=== PATIENT | male | born 1950 | race Caucasian/White ===

== ENCOUNTER 2019-08-29 05:28 | Observation (INO) ==
--- NOTE | 2019-08-29 05:55 | ERNOTE ---
Dyspnea - General Presenting Symptoms: shortness of breath Time Seen by Provider: 08/29/19 05:40 Source: patient Exam Limitations: no limitations - Immun/Allergies/Home Medications Immunizations: IMMUNIZATION HX Immunizations Up to Date Yes History of Influenza Vaccine No Hx Pneumococcal Vaccination No Allergies/Adverse Reactions: Allergies penicillin G Allergy (Mild, Verified 08/29/19 07:30) hives Home Medications: HOME MEDICATIONS NK 08/29/19 [Last Taken Unknown] - History of Present Illness Narrative: Patient states he awoke about 4 hours [employer] with chest heaviness. He denies shortness of breath but his says initially he said he was somewhat short of breath. He denies other symptoms Severity: moderate Initiating event: Reports: none Frequency of episodes: Reports: no prior episodes Modifying Factors - (Improves): Reports: rest Modifying Factors (Worsens): Reports: activity Associated Symptoms-Dyspnea: Reports: denies symptoms Review of Systems - Review of Systems Constitutional: Absent: recent illness, fever, chills EYE: Absent: vision changes ENT: Absent: nose congestion, nasal drainage Respiratory: Present: See HPI. Absent: cough Cardiology: Present: See HPI. Absent: palpitations Gastrointestinal/Abdominal: Absent: nausea, vomiting, abdominal pain Genitourinary: Absent: frequency, dysuria Musculoskeletal: Absent: back pain, muscle pain Skin: Absent: rash Neurological: Absent: headache, dizziness/light-headedness Endocrine: Absent: excessive sweating Hematologic/Lymphatic: Absent: easy bruising, easy bleeding Medical History (Last Reviewed 08/29/19 @ 05:50 by Koby Guajardo DO) Acute pain of right shoulder (Acute) Traumatic ecchymosis of right upper arm (Acute) Bruising in band like manner around upper forearm raises concern of intentional trauma such as being pulled upon aggressively. This would also explain associated right shoulder pain. However patient denies any trauma and does not recall an inciting event. at bedside and also does not recall how this could have occurred. No other symptoms or behavior that warrant further investigation. Conclusion discussed with patient, was bruising is most likely attributed to Coumadin treatment, however its presentation is very unusual. Multiple sclerosis (Chronic) Onset Date: Unknown DVT (deep venous thrombosis) (Resolved) Surgical History: Surgical History (Last Reviewed 08/29/19 @ 05:50 by Koby Guajardo DO) H/O hernia repair Onset Date: Unknown H/O transurethral resection of prostate Onset Date: Unknown History of foot surgery Onset Date: Unknown left Family History: Family History (Last Reviewed 08/29/19 @ 05:50 by Koby Guajardo DO) Father Hypertension Mother Hypertension Social History: (Last Reviewed 08/29/19 @ 05:50 by Koby Guajardo DO) Social History: adopted: No care home: No Marital status: lives independently: No household members: spouse number of children: 4 caregiver/support person: No current occupational status: retired Highest education level completed: high school graduate Service: No Tobacco: Smoking Status: Never smoker Alcohol: alcohol intake: current Alcohol type: beer alcohol intake frequency: a few times a month Substance Use: substance use type: does not use Dietary Habits: caffeine: Yes Physical Exam - Physical Exam General Appearance: Present: wd/wn, alert, no apparent distress Head Exam: Present: normal inspection, no evidence of injury Eye Exam: Normal inspection: bilateral, PERRL: bilateral, EOMI: bilateral Ears, Nose, Throat: Present: normal ENT inspection Neck: Present: normal inspection, nontender, supple Respiratory: Present: no respiratory distress, normal breath sounds, no accessory muscle use, chest nontender, lungs clear Cardiovascular/Chest: Present: regular rate, rhythm, no murmur Gastrointestinal/Abdominal: Present: normal bowel sounds, nontender, nondistended, soft Back Exam: Present: normal inspection, normal range of motion Extremity Exam: Present: normal inspection, normal range of motion, no edema Neurological Exam: Present: alert, oriented, normal mood/affect, no motor/sensory deficits Skin Exam: Present: normal color, warm/dry Lymphatic Exam: Present: no adenopathy Progress - Results and Orders Patient's Lab Results:: I have reviewed the patient's lab results. Results and Orders: Laboratory Tests 08/29/19 08/29/19 06:04 06:04 WBC 6.6 Hgb 14.5 Hct 43.9 Plt Count 304 Sodium 139 Potassium 4.1 Chloride 105 Carbon Dioxide 23.7 L BUN 15 Creatinine 0.93 BUN/Creatinine Ratio 16.1 Random Glucose 105 Calcium 9.3 Total Bilirubin 0.5 AST 19 ALT 27 Alkaline Phosphatase 62 Troponin I Less than 0.017 - Vital Signs Patient's Vital Signs:: I have reviewed the patient's vital signs. Vital Signs: Vital Signs 08/29/19 05:33 Temperature 36.7 C Pulse Rate 66 Respiratory Rate 16 Blood Pressure 143/97 H O2 Sat by Pulse Oximetry 97 - EKG EKG #1 EKG: atrial fibrillation, nonspecific ST T wave changes EKG read: Interp. by me - X-Ray X-Ray #1 X-Ray: chest Interpretation: Interp. by me X-ray Comments: No acute cardiopulmonary disease. - Progress/Reassessment Chief Complaint: Dyspnea Progress:: Improved Progress Note-Subjective: Pt's [id number] score is 3 due to age and previous thromboembolism. 08/29/19 07:[address] Hoffman she agrees to admission Departure Clinical Impression: Atrial fibrillation Qualifiers: Atrial fibrillation type: unspecified Qualified Code(s): I48.91 - Unspecified atrial fibrillation - Departure Disposition: Still a patient Condition: Stable
[2019-08-29 06:05] LABS: Hematocrit 43.9 % (42.0-52.0); Hemoglobin 14.5 gm/dL (13.5-18.0); Mean Cell Volume 90.1 fl (78-100); Mean Corpuscular Hemoglobin 29.8 pg (27-31); Neutrophil # 3.4 K/mm3 (1.3-6.0); Neutrophil % 51.4 % (42-75.0); Platelet Count 304 K/mm3 (150-450); Red Blood Count 4.87 M/mm3 (4.7-6.0); White Blood Count 6.6 K/mm3 (4.0-10.5)
[2019-08-29 06:26] LABS: ALT 27 U/L (19-67); AST 19 U/L (0-48); Albumin * 3.8 gm/dl (3.4-5.0); Alkaline Phosphatase * 62 U/L (50-170); Anion Gap 14.4 mmol/L (6.8-13.8); BUN/Creatinine Ratio 16.1 (9.0-21.6); Bilirubin, Total 0.5 mg/dL (0.0-1.1); Blood Urea Nitrogen 15 mg/dL (6-23); Ca. Corrected For Albumin 9.1 mg/dL (8.4-10.2); Calcium * 9.3 mg/dL (7.9-10.9); Carbon Dioxide 23.7 mmol/L (24-32.6); Chloride 105 mmol/L (97-106); Glucose * 105 mg/dL (70-110); Potassium 4.1 mmol/L (3.4-4.6); Sodium 139 mmol/L (132-142); Total Protein 7.5 gm/dL (6.2-8.2)
[2019-08-29 06:31] LABS: Troponin I Less than 0.017 ng/mL (0.00-0.10)
[2019-08-29] MEDS ORDERED: ACETAMINOPHEN 325 MG TABLET PO PRN (08:37)
[2019-08-29] MEDS ORDERED: ENOXAPARIN SODIUM 40 MG/0.4 ML SYRG SC SCH (08:45)
[2019-08-29] MEDS ORDERED: LACTOBACILLUS ACIDOPHILUS 1 EACH CAPSULE PO SCH (09:00)
[2019-08-29] MEDS ORDERED: ENOXAPARIN SODIUM 100 MG, ENOXAPARIN SODIUM 30 MG SC SCH ×2 (09:00)
--- NOTE | 2019-08-29 09:10 | HP ---
Chief Complaint - Chief Complaint Date of Service: 08/29/19 Time of Service: 08:59 Chief Complaint: I had sudden shortness of breath and chest pressure this morning History of Present Illness: 68-year-old male with past medical history of multiple sclerosis, morbid obesity, DVT was evaluated ER for sudden onset of shortness of breath that woke the patient up from the sleep and reported pressure in his chest. Patient reports that he went to bed without any issues and suddenly early this morning he woke up gasping for breath. He also explains something similar to an anxiety attack where he felt very tense and uneasy about something. Upon questioning patient and his report an increased level of stress recently due to legal trouble of their grandson which they raised, with grandson was arrested for DUI during the holiday season therefore his future is uncertain. Patient admits that it is likely an anxiety attack that caused her symptoms because as soon as he started driving to the hospital all symptoms resolved. Upon arriving at the hospital the patient was found to be asymptomatic however an EKG demonstrated new onset atrial fibrillation but with an adequate rate. Patient denies any old MIs or heart issues nor respiratory illnesses. Medical History (Last Reviewed 08/29/19 @ 08:33 by Elder Grant RN) Acute pain of right shoulder (Acute) Traumatic ecchymosis of right upper arm (Acute) Bruising in band like manner around upper forearm raises concern of intentional trauma such as being pulled upon aggressively. This would also explain associated right shoulder pain. However patient denies any trauma and does not recall an inciting event. at bedside and also does not recall how this could have occurred. No other symptoms or behavior that warrant further investigation. Conclusion discussed with patient, was bruising is most likely attributed to Coumadin treatment, however its presentation is very unusual. Multiple sclerosis (Chronic) Onset Date: Unknown DVT (deep venous thrombosis) (Resolved) Surgical History: Surgical History (Last Reviewed 08/29/19 @ 08:33 by Elder Grant RN) H/O hernia repair Onset Date: Unknown H/O transurethral resection of prostate Onset Date: Unknown History of foot surgery Onset Date: Unknown left Family History: Family History (Last Reviewed 08/29/19 @ 08:33 by Elder Grant RN) Father Hypertension Mother Hypertension Social History: (Last Reviewed 08/29/19 @ 08:34 by Elder Grant RN) Social History: adopted: No care home: No Marital status: lives independently: No household members: spouse number of children: 4 caregiver/support person: No current occupational status: retired Highest education level completed: high school graduate Service: No Tobacco: Smoking Status: Never smoker Alcohol: alcohol intake: current Alcohol type: beer alcohol intake frequency: a few times a month Substance Use: substance use type: does not use Dietary Habits: caffeine: Yes Peds Patient Hx - Developmental: No Pertinent Hx Peds Patient Hx - Medical: No Pertinent Hx Peds Patient Hx - Cardiac/Respiratory: No Pertinent Hx Peds Patient Hx - Surgical: No Surgical History Patient History - Cancer: No Hx of Cancer Review Of Systems (GEN) - Review of Systems Generalized/Overall Review: Present: No Symptoms Reported EENTM: Present: No Symptoms Reported Respiratory: Present: Shortness of Breath Cardiac: Present: Other - Chest pressure no pain Abdominal: Present: No Symptoms Reported Genitourinary: Present: No Symptoms Reported Musculoskeletal: Present: No Symptoms Reported Neurological: Present: No Symptoms Reported Skin: Present: No Symptoms Reported Endocrine: Present: No Symptoms Reported Immunizations: IMMUNIZATION HX Immunizations Up to Date Yes History of Influenza Vaccine No Hx Pneumococcal Vaccination No Allergies/Adverse Reactions: Allergies Allergy/AdvReac Type Severity Reaction Status Date / Time Penicillins Allergy Intermediate Hives Verified 08/29/19 08:32 Home Medications: HOME MEDICATIONS Lactobacillus Combination No.4 [Probiotic] 1 ea PO DAILY 08/29/19 [Last Taken Unknown] Exam - Exam Vital Signs: Vital Signs - Last Taken Temp 36.2 C 08/29/19 08:13 Pulse 74 08/29/19 08:43 Resp 16 08/29/19 08:13 BP 143/79 08/29/19 08:13 Pulse Ox 94 08/29/19 08:13 Constitutional: Present: Alert, Oriented x3, Cooperative, Well developed, No distress, Elderly, Morbidly obese ENT Exam: Present: normal ENT inspection, hearing grossly normal, pharynx normal, TMs normal Eye Exam: bilateral eye: normal inspection, PERRL, EOMI Neck: Present: non-tender, full range of motion, supple, normal inspection, trachea midline Back Exam: Present: normal inspection, no CVA tenderness, no vertebral tenderness Breasts: Present: Exam deferred Respiratory: Present: chest non-tender, lungs clear, normal breath sounds, no respiratory distress, no accessory muscle use Cardiovascular/Chest: Present: normal peripheral pulses, no chest tenderness, no edema, no gallop, no JVD, no murmur, no rub, irregularly irregular Peripheral Pulses: carotid (R): 3+, carotid (L): 3+, femoral (R): 3+, femoral (L): 3+ Abdomen: Present: Normal bowel sounds, soft, nontender, nondistended, no rebound tenderness, no hepatospenomegaly, no masses, obese /Rectal: Present: Exam deferred Extremity: Present: normal range of motion, non-tender, normal inspection, no pedal edema, no calf tenderness, normal capillary refill, pelvis stable Skin Exam: Present: normal color, warm/dry, no cyanosis Lymphatic: Present: no adenopathy 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, normal cerebellar test, no motor/sensory deficits, alert, normal mood/affect, oriented x 3 Appearance: Present: appropriate appearance, appropriate insight, neat, no memory impairment Eye contact: Present: cooperative, good eye contact, normal speech Thoughts: Present: normal thought pattern, no apparent hallucination Diagnostic Studies: Abnormal Lab Results 08/29/19 08/29/19 Range/Units 06:04 06:04 Immature Gran % (Auto) 0.80 H (0.001-0.429) % Immature Gran # (Auto) 0.05 H (0.000-0.0310) K/mm3 Monocytes % 10.4 H (0.0-9) % Eosinophils % 3.6 H (0.0-3.0) % Carbon Dioxide 23.7 L (24-32.6) mmol/L Anion Gap 14.4 H (6.8-13.8) mmol/L Laboratory Results WBC 6.6 K/mm3 (4.0-10.5) 08/29/19 06:04 RBC 4.87 M/mm3 (4.7-6.0) 08/29/19 06:04 Hgb 14.5 gm/dL (13.5-18.0) 08/29/19 06:04 Hct 43.9 % (42.0-52.0) 08/29/19 06:04 MCV 90.1 fl (78-100) 08/29/19 06:04 MCH 29.8 pg (27-31) 08/29/19 06:04 MCHC 33.0 g/dl (32-36) 08/29/19 06:04 RDW 14.0 % (11.5-14.0) 08/29/19 06:04 Plt Count 304 K/mm3 (150-450) 08/29/19 06:04 MPV 9.0 fl (8-11.3) 08/29/19 06:04 Immature Gran % (Auto) 0.80 % (0.001-0.429) H 08/29/19 06:04 Immature Gran # (Auto) 0.05 K/mm3 (0.000-0.0310) H 08/29/19 06:04 Neutrophils % 51.4 % (42-75.0) 08/29/19 06:04 Lymphocytes % 32.9 % (20-51) 08/29/19 06:04 Monocytes % 10.4 % (0.0-9) H 08/29/19 06:04 Eosinophils % 3.6 % (0.0-3.0) H 08/29/19 06:04 Basophils % 0.9 % (0.0-1.0) 08/29/19 06:04 Nucleated RBC % 0.0 k/mm3 (0-1) 08/29/19 06:04 Neutrophils # 3.4 K/mm3 (1.3-6.0) 08/29/19 06:04 Lymphocytes # 2.18 k/mm3 (1.5-3.5) 08/29/19 06:04 Monocytes # 0.7 k/mm3 (0.0-1.0) 08/29/19 06:04 Eosinophils # 0.2 k/mm3 (0.0-0.7) 08/29/19 06:04 Absolute Basophils 0.1 k/mm3 (0.0-0.1) 08/29/19 06:04 D-Dimer 0.22 ug/mL (0.19-0.49) 08/29/19 06:04 Sodium 139 mmol/L (132-142) 08/29/19 06:04 Plasma Sodium 139 mmol/L (130-142) 08/29/19 06:04 Potassium 4.1 mmol/L (3.4-4.6) 08/29/19 06:04 Chloride 105 mmol/L (97-106) 08/29/19 06:04 Carbon Dioxide 23.7 mmol/L (24-32.6) L 08/29/19 06:04 Anion Gap 14.4 mmol/L (6.8-13.8) H 08/29/19 06:04 BUN 15 mg/dL (6-23) 08/29/19 06:04 Creatinine 0.93 mg/dL (0.4-1.4) 08/29/19 06:04 Est GFR (Non-Af Amer) 85 mL/min (60-130) 08/29/19 06:04 BUN/Creatinine Ratio 16.1 (9.0-21.6) 08/29/19 06:04 Random Glucose 105 mg/dL (70-110) 08/29/19 06:04 Calcium 9.3 mg/dL (7.9-10.9) 08/29/19 06:04 Calcium Adj for Albumin 9.1 mg/dL (8.4-10.2) 08/29/19 06:04 Total Bilirubin 0.5 mg/dL (0.0-1.1) 08/29/19 06:04 AST 19 U/L (0-48) 08/29/19 06:04 ALT 27 U/L (19-67) 08/29/19 06:04 Alkaline Phosphatase 62 U/L (50-170) 08/29/19 06:04 Troponin I Less than 0.017 ng/mL (0.00-0.10) 08/29/19 06:04 Total Protein 7.5 gm/dL (6.2-8.2) 08/29/19 06:04 Albumin 3.8 gm/dl (3.4-5.0) 08/29/19 06:04 Assessment/Plan - Narrative Narrative: Patient was evaluated and medical chart was reviewed and decision to admit for observation of new onset atrial fibrillation was made. Patient has been placed on a laboratory monitor which currently demonstrate an irregular rhythm that is most likely atrial fibrillation but his rate is adequately controlled. Given his arrhythmia and as a precaution against VTE he will be placed on anticoagu lation therapy. Currently the patient does not take any routine medication except a probiotic therefore there were no medication that needed to be reconciled at the moment. He expresses a desire to be discharged home however after the and patient plan was discussed he agreed to echocardiogram for work-up of his new onset atrial fibrillation. All labs were negative. - Assessment/Plan (1) Atrial fibrillation Problem: Acute Qualifiers: Atrial fibrillation type: unspecified Qualified Code(s): I48.91 - Unspecified atrial fibrillation (2) Multiple sclerosis Problem: Chronic (3) Morbid obesity due to excess calories Problem: Chronic
[2019-08-29] MEDS ORDERED: METOPROLOL TARTRATE 25 MG TABLET PO SCH (09:15)
--- NOTE | 2019-08-29 16:18 | DS ---
(1) Atrial fibrillation Problem: Acute Qualifiers: Atrial fibrillation type: unspecified Qualified Code(s): I48.91 - Unspecified atrial fibrillation (2) Multiple sclerosis Problem: Chronic (3) Morbid obesity due to excess calories Problem: Chronic Date of Discharge:: 08/29/19 Hospital Course: 68-year-old male admitted for new onset atrial fibrillation was evaluated at bedside was found to be afebrile and in no acute distress. Patient continues to demonstrate an adequate rate but his atrial fibrillation persists. He agreed to stay on anticoagulation for prophylaxis against VTE and will follow-up with his primary care doctor for management of that medication. Currently vitals are stable and there has been no new symptoms. Echocardiogram ordered during the hospitalization is negative for any abnormalities and has an adequate EF of 50 to 55%. No structural abnormality was found. He will be discharged with instructions to resume all of his routine medications and to follow-up with his PCP. Procedures Performed: none Results and Findings: Lab Pending Results 08/29/19 06:04: WBC 6.6, RBC 4.87, Hgb 14.5, Hct 43.9, MCV 90.1, MCH 29.8, MCHC 33.0, RDW 14.0, Plt Count 304, MPV 9.0, Immature Gran % (Auto) 0.80 H, Immature Gran # (Auto) 0.05 H, Neutrophils % 51.4, Lymphocytes % 32.9, Monocytes % 10.4 H, Eosinophils % 3.6 H, Basophils % 0.9, Nucleated RBC % 0.0, Neutrophils # 3.4, Lymphocytes # 2.18, Monocytes # 0.7, Eosinophils # 0.2, Absolute Basophils 0.1 08/29/19 06:04: Sodium 139, Plasma Sodium 139, Potassium 4.1, Chloride 105, Carbon Dioxide 23.7 L, Anion Gap 14.4 H, BUN 15, Creatinine 0.93, Est GFR (Non- Af Amer) 85, BUN/Creatinine Ratio 16.1, Random Glucose 105, Calcium 9.3, Calcium Adj for Albumin 9.1, Total Bilirubin 0.5, AST 19, ALT 27, Alkaline Phosphatase 62, Troponin I Less than 0.017, Total Protein 7.5, Albumin 3.8 08/29/19 06:04: D-Dimer 0.22 Discharge Location: Home Disposition: Home self-care Condition: Stable Face to Face Encounter completed per [facility] Guidelines: No Discharge Activity: Activity as tolerated Discharge Diet: Low fat/chol Referrals: Corina Figueroa FNP [Primary Care Provider] - Prescriptions (Any new or edited meds): Warfarin Sodium [Coumadin] 12.5 mg PO DAILY 14 Days #14 tab Transmission Status: Pending to [place] Metoprolol Tartrate [Lopressor] 25 mg PO Q12H #60 tab Transmission Status: Pending to [place], [place] Complete Home Medications List: Complete Home Medication List: Lactobacillus Combination No.4 [Probiotic] 1 ea PO DAILY 08/29/19 Metoprolol Tartrate [Lopressor] 25 mg PO Q12H #60 tab 08/29/19 Warfarin Sodium [Coumadin] 12.5 mg PO DAILY 14 Days #14 tab 08/29/19
[2019-08-29 16:39] VITALS: BP 105/60
--- NOTE | 2019-08-30 14:10 | ECHO ---
This report is available in the EMR
== END 2019-08-29 16:50 | disposition home or self-care (01) ==
LOC: SCU 05:28 → ER 05:28 → SCU 08:00
PROVIDERS: ADMIT Family Medicine; ATTEND Family Medicine
DX: G35 Multiple sclerosis; I48.91 Unspecified atrial fibrillation; E66.01 Morbid (severe) obesity due to excess calories
CPT/HCPCS: 36415; 71020; 71046; 80053; 84484; 85025; 85379; 93005; 93306; 94760; 96372; 99285; G0378